=== PATIENT | male | born 2000 | race Two or more races ===

== ENCOUNTER 2024-11-05 06:30 | Emergency (ER) | payer MEDICAID, SELFPAY ==
[2024-11-05 06:32] VITALS: PULSE 65; O2SAT 97; BMI 19.5
[2024-11-05 06:40] VITALS: BP 120/68; PULSE 90; RESP 19; TEMP 36.6; O2SAT 97
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
[2024-11-05] MEDS: HYDROcodone/APAP 5/325 TABLET 1 TAB PO (07:30)
[2024-11-05] MEDS: CYCLObenzaPRINE 5 MG TABLET PO (07:30)
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
== END 2024-11-05 10:41 | disposition home or self-care (01) ==
PROVIDERS: Emergency Provider Emergency Medicine
DX: S29.9XXA Unspecified injury of thorax, initial encounter (principal); S39.91XA Unspecified injury of abdomen, initial encounter; S89.92XA Unspecified injury of left lower leg, initial encounter; S89.91XA Unspecified injury of right lower leg, initial encounter; S49.92XA Unspecified injury of left shoulder and upper arm, initial encounter; S19.9XXA Unspecified injury of neck, initial encounter; V89.2XXA Person injured in unspecified motor-vehicle accident, traffic, initial encounter
CPT/HCPCS: 71250; 72040; 73060; 73562; 74176; 99284; A9270